=== PATIENT | female | born 1975 | race Caucasian/White ===

== ENCOUNTER → 2016-08-19 | Outpatient (CLI) | payer OTHER ==
[~2016-08-19] MED LIST: DILA2TAB; GLUCOSAMIDE; IBUP800T; LIDO5DIS; LYRI150C; LYRI75CA; MULT1TAB8 PO; PROZ20CA; THERGRAN; TRAM50TA2; VITA100066 PO; ZANA2CAP
--- NOTE | 2016-08-19 09:07 | REPMRS ---
Patient History The patient states she has not had a clinical breast exam in over a year. Family history of unknown cancer in paternal grandfather. Digital Mammo Screening Bilat: August 19, 2016 - Exam #: [id number] Bilateral CC and MLO view(s) were taken. Technologist: Alice Aly, Technologist FINDINGS: The breast tissue is heterogeneously dense. This may lower the sensitivity of mammography. There is no evidence of cancer on this mammogram. ASSESSMENT: BI-RADS/ACR category 2 mammogram. Benign finding(s). Recommendation Routine screening mammogram of both breasts in 1 year (for women over age 40). This mammogram was interpreted with the aid of an FDA-approved computer-aided dectection system. Electronically Signed By: Manny Kenny MD 08/19/16 0907
== END ==
LOC: M RAD 07:36
PROVIDERS: ATTEND Family Medicine Addiction Medicine
DX: Z12.31 Encounter for screening mammogram for malignant neoplasm of breast (principal)

== ENCOUNTER 2018-08-04 08:54 | Emergency (ER) | payer OTHER, SELFPAY ==
[~2018-08-04] VITALS: Ht 157.5 cm; Wt 54.5 kg
[2018-08-04 09:41] LABS: BILIRUBIN, URINE MANUAL NEGATIVE (NEGATIVE); GLUCOSE, URINE (UA) MANUAL NEGATIVE (NEGATIVE); KETONE, URINE MANUAL NEGATIVE (NEGATIVE); UROBILINOGEN, URINE MANUAL NORMAL (NORMAL)
[2018-08-04 09:42] LABS: BACTERIA, URINE MOD AMOUNT; HYALINE CAST, URINE NONE SEEN /lpf (0-1); RBC, URINE TNTC /hpf (0-3); SQUAMOUS EPITHELIAL CELL URINE MOD AMOUNT /hpf (SMALL AMT)
[2018-08-04 10:51] LABS: BASO # 0.1 10^3/uL (0.0-0.2); BASO % 0.4 % (0.0-1.0); EOS # 0.2 10^3/uL (0.0-0.50); EOS % 1.3 % (0.0-3.0); HEMATOCRIT 42.4 % (36.0-47.0); LYMPH # 1.6 10^3/uL (1.5-4.5); LYMPH % 12.5 % (24.0-44.0); MEAN CORPUSCULAR HEMOGLOBIN 32.4 pg (27.0-33.0); MEAN CORPUSCULAR VOLUME 98.1 fl (80.0-96.0); MONO # 0.6 10^3/uL (0.0-0.8); MONO % 4.8 % (0.0-5.0); NEUTROPHILS # 10.5 10^3/uL (1.8-7.7); NEUTROPHILS % 80.7 % (36.0-66.0); PLATELET COUNT, AUTOMATED 340 10^3/uL (150-450); RED BLOOD COUNT 4.32 10^6/uL (4.00-5.40); WHITE BLOOD COUNT 13.1 10^3/uL (4.0-10.0)
[2018-08-04 11:07] LABS: HCG, SERUM QUALITATIVE NEGATIVE (NEGATIVE)
[2018-08-04 11:15] LABS: BLOOD UREA NITROGEN 12 MG/DL (7-18); CALCIUM LEVEL 8.2 MG/DL (8.5-10.1); CARBON DIOXIDE LEVEL 31 MEQ/L (21-32); CHLORIDE LEVEL 106 MEQ/L (98-107); CK-MB VALUE MASS 1.2 NG/ML (<3.6); CPK CREATINE PHOSPHOKINASE 108 U/L (26-192); CREATININE FOR GFR 0.78 MG/DL (0.55-1.30); GLOMERULAR FILTRATION RATE > 60.0 (>58); GLUCOSE, FASTING 79 MG/DL (70-100); MB/CK RELATIVE INDEX 1.11 (< OR =4); POTASSIUM SERUM 4.3 MEQ/L (3.5-5.1); SODIUM LEVEL 139 MEQ/L (136-145); TROPONIN I < 0.02 NG/ML (< 0.10)
[2018-08-04] MEDS ORDERED: cefTRIAXone SOD 1 GM VIAL (J0696) IM ONE ×2 (11:45→12:00)
[2018-08-04] MEDS ORDERED: LIDOCAINE 1% SDV 5 ML VIAL DILUENT ONE (12:00)
[2018-08-04] MEDS ORDERED: CIPR-249 PO (12:41)
[2018-08-04 12:48] VITALS: BP 142/70
--- NOTE | 2018-08-05 08:43 | ECGEPIP ---
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
== END 2018-08-04 12:50 | disposition home or self-care (01) ==
LOC: M ED 08:54
DX: N10 Acute pyelonephritis (principal); Z79.899 Other long term (current) drug therapy
CPT/HCPCS: 36415; 80048; 81000; 82550; 82553; 84484; 84703; 85025; 85379; 87088; 87186; 93005; 96372; 99284; J0696

== ENCOUNTER → 2023-10-06 | Outpatient (REF) ==
[~2023-10-06] MED LIST changes: +CIPR-249 PO
== END ==
LOC: M LAB 11:21
PROVIDERS: ATTEND Nurse Practitioner Adult Health
DX: Z02.1 Encounter for pre-employment examination (principal)